=== PATIENT | male | born 1985 | race Caucasian/White ===

== ENCOUNTER 2016-11-15 05:51 | Day surgery (SDC) | payer OTHER ==
[~2016-11-15] VITALS: Ht 177.8 cm; Wt 79.9 kg
[2016-11-15] MEDS: Lactated Ringer's 1,000 ML IV SCH ×2 (05:20→07:24)
[2016-11-15] MEDS ORDERED: fentaNYL-PF 50 mCg/mL 2 mL Inj ONE (05:52)
[2016-11-15 06:22] VITALS: BP 107/60; PULSE 58; RESP 16; O2SAT 97
[2016-11-15] MEDS ORDERED: CeFAZolin Inj 2 GM in IV Premix 1 EACH IV ONE (07:00)
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
[2016-11-15] MEDS ORDERED: Bupivacaine-MPF 0.5% 30 mL Inj INJ ONE (07:30)
[2016-11-15] MEDS ORDERED: Lidocaine 2%-Epi 1:100,000 20 mL Inj NERVEBLOCK ONE (07:30)
[2016-11-15] MEDS ORDERED: Lactated Ringer's 500 ML IV PRN (07:37)
[2016-11-15] MEDS ORDERED: Lactated Ringer's 1,000 ML IV SCH (07:37)
[2016-11-15] MEDS ORDERED: Labetalol 5 mg/mL 4 mL Inj IV PRN (07:40)
[2016-11-15] MEDS ORDERED: hydrALAZINE 20 mg/mL Inj IVPUSH PRN (07:40)
[2016-11-15] MEDS ORDERED: HYDROmorphone 1 mg/mL Inj IVPUSH PRN (07:40)
[2016-11-15] MEDS ORDERED: hydrOXYzine Inj 25 MG/1 mL SDV IM PRN (07:40)
[2016-11-15] MEDS ORDERED: EPHEDrine Sulfate 50 mg/mL Inj IM PRN (07:40)
[2016-11-15] MEDS ORDERED: fentaNYL-PF 50 mCg/mL 2 mL Inj IVPUSH PRN (07:40)
[2016-11-15] MEDS ORDERED: Phenylephrine 10,000 mCg/mL Inj IVPUSH PRN (07:40)
[2016-11-15] MEDS ORDERED: Atropine 0.4 mg/mL Inj IVPUSH PRN (07:40)
[2016-11-15] MEDS ORDERED: Ondansetron 2 mg/mL 2 mL Inj IVPUSH PRN (07:40)
[2016-11-15] MEDS ORDERED: Dexamethasone 4 mg/mL Inj IVPUSH PRN (07:40)
[2016-11-15] MEDS ORDERED: EPHEDrine Sulfate 50 mg/mL Inj IVPUSH PRN (07:40)
[2016-11-15 08:50] VITALS: BP 117/58; PULSE 59; RESP 10; O2SAT 96
[2016-11-15] MEDS ORDERED: HYDROcodone-APAP 5-325 mg Tablet PO PRN (08:50)
[2016-11-15 08:54] VITALS: BP 112/66; PULSE 58; RESP 12; O2SAT 96
--- NOTE | 2016-11-15 08:56 | PCM.PODPO ---
Podiatry Operative Report Date of Service: Nov 15, 2016 Date of Service Nov 15, 2016 Pre Operative Diagnosis Hallux valgus right foot Post Operative Diagnosis Same as preoperative diagnoses Procedure Correction of hallux valgus deformity with distal metatarsal osteotomy Surgeon Surgeon: Tadeo Johnson DPM Assistants: None Indication for Procedure Painful hallux valgus right foot Findings Moderate hallux valgus with no noted where of the first metatarsal phalangeal joint articular surface Details of Procedure Patient was identified in the preoperative holding area preoperative comorbidities and allergies were identified and thoroughly discussed. The patient was transported into the operating room and placed on the operating room table in the normal supine position. The patient was then prepped and draped in the normal aseptic technique. Attention was first paid to the right foot in peripheral block consisting of 10 mL of a one-to-one solution of half percent Marcaine and 2% lidocaine with epinephrine was given around the base of the first metatarsal. A curvilinear incision approximately 5-1/2 cm in length was made utilizing a #15 blade overlying the dorsal medial aspect of the first metatarsal. Once that initially her skin all subcutaneous neurovascular structures were identified and retracted out of the surgical field. Careful blunt dissection was performed utilizing a Metzenbaum scissor through subcutaneous tissue to identify deep fascia. The extensor hallucis longus tendon was identified and retracted laterally. A fresh #15 blade was then utilized to incise through deep fascia and periosteum down to bone throughout the course of the incision reflecting the medial aspect of the periosteum and deep fascia exposing the enlarged medial eminence the lateral aspect of periosteum and deep fascia was reflected proximally leaving the soft tissue attachments to the medical tarsal head laterally intact. A McGlamry area ostial elevator was then utilized to perform a cyst mortal ligament release. A Chris retractor was then inserted plantar to the first metatarsal head from the medial aspect exposing the medial aspect of the first metatarsal and enlarged medial eminence. A sagittal saw was then utilized to resect the enlarged medial eminence which was then removed from the body. The patient was placed into a frog legged position and a chevron style osteotomy was performed utilizing a sagittal saw. The capital fragment was then laterally translated approximately 4 mm and temporarily fixated utilizing a K wire. 2 #2.0 screws were then inserted in the normal surgical technique across the osteotomy site ensuring adequate compression and maintained reduction of the osteotomy. Intraoperative C-arm x-ray was utilized to verify positioning of the internal fixation. The temporary fixation was removed. A sagittal saw was then utilized to resect the remaining portion of the enlarged medial eminence. This wound was then copiously flushed with large amounts of normal saline. Deep closure was performed utilizing number 2. 0 Vicryl subcutaneous closure was performed utilizing a 3. 0 Vicryl and skin closure was performed utilizing 3. 0 Prolene. The wound was then dressed with Adaptic sterile 4 x 4 gauze Kerlix and an Robert bandage prior to wound dressing placement a postoperative block consisting of 10 mL percent Marcaine with epinephrine was given locally. No complications occurred during this case the patient was awoken by anesthesia and transported to the operating room. Grafts, Implants: Implants-See Implant Record Complications There were no periprocedural complications identified. Condition Stable Anesthetic Administered: GA Catheters: None Output, Estimated Blood Loss: 20 Blood Admin during surgery: No Surgical Cast or Splint: None Surgical Specimen Removed: No Specimen sent to Pathology: No Post Operative Plan Ice and elevate right lower extremity Partial weightbearing to the right heel Dispensed surgical shoe Follow-up in 1 week sooner if necessary Contact office with any questions or concerns regarding care discharged to home when stable Tadeo Johnson DPM Nov 15, 2016 08:55
[2016-11-15 09:10] VITALS: BP 110/58; PULSE 57; RESP 12; O2SAT 95
--- NOTE | 2016-11-15 09:14 | PCM.ANEP1 ---
Post Anesthesia Phase 1 PACU Phase 1 Assessment Date of Service: Nov 15, 2016 Vital Signs Vital Signs Date Time Temp Pulse Resp B/P Pulse Ox O2 Delivery O2 Flow Rate FiO2 11/15/16 09:10 57 12 110/58 95 Room Air 11/15/16 08:54 58 12 112/66 96 Room Air 11/15/16 08:50 36.5 59 10 117/58 96 Room Air 11/15/16 06:22 35.8 58 16 107/60 97 Room Air Anesthetic Administered: GA Level of Alertness: Awake, talking KHALIL's with Equal Strength: Yes Pain: No Oxygen Delivery: Room Air Lungs: Normal Air Movement Ameya Sena MD Nov 15, 2016 09:14
[2016-11-15 10:00] VITALS: BP 114/64; PULSE 52; RESP 14; O2SAT 98
[2016-11-15 10:40] VITALS: BP 113/63; PULSE 48; RESP 14; O2SAT 94
--- NOTE | 2016-11-15 14:44 | PCM.ANEP2 ---
Post Anesthesia Evaluation ASA/CMS Post Anesthesia VS in Patient's Normal Range?: Yes Resp Stable; Airway Patent?: Yes CV Function & Hydration Stable: Yes Mental Status Recovered?: Yes Pain control Satisfactory?: Yes N/V Control Satisfactory?: Yes Ameya Sena MD Nov 15, 2016 14:44
== END 2016-11-15 23:59 | disposition home or self-care (01) ==
LOC: SAS 05:51
PROVIDERS: ATTEND Podiatrist Foot & Ankle Surgery
PROC: 0QSN04Z Reposition Right Metatarsal with Internal Fixation Device, Open Approach (ICD-10-PCS; 2016-11-15)
PROC: 0QBN0ZZ Excision of Right Metatarsal, Open Approach (ICD-10-PCS; principal; 2016-11-15 07:15)
DX: M20.11 Hallux valgus (acquired), right foot (principal)
CPT/HCPCS: 28296; 76000; C1713; J0690; J2250; J3010; J7120